=== PATIENT | female | born 1990 | race American Indian/Alaskan Native ===

== ENCOUNTER 2020-08-21 19:50 | Emergency (ER) | payer OTHER | END 2020-08-21 20:00 | disposition left against medical advice (07) | LOC: ED 19:50 | DX: Z00.8 Encounter for other general examination (principal); Z53.21 Procedure and treatment not carried out due to patient leaving prior to being seen by health care provider ==

== ENCOUNTER 2020-09-27 14:48 | Emergency (ER) | payer OTHER ==
[2020-09-27 14:55] VITALS: BP 153/93
--- NOTE | 2020-09-27 15:00 | Event Note ---
ED Screening Note ED Screening Note: CO COUGH PAIN UNDER RIBS WITH COUGH COVID NEG YESTERDAY ALSO CO WEAK- ANEMIA IN THE PAST PCOS ON MENSES SINCE DEC This initial assessment/diagnostic orders/clinical plan/treatment(s) is/are subject to change based on patients health status, clinical progression and re- assessment by fellow clinical providers in the ED. Further treatment and workup at subsequent clinical providers discretion. Patient/guardian urged not to elope from the ED as their condition may be serious if not clinically assessed and managed. Initial orders include: XR LABS
[2020-09-27 15:41] LABS: Hematocrit 36.3 % (30.3-42.9); Hemoglobin 12.2 gm/dl (10.1-14.3); Mean Corpuscular HGB Conc 34 % (30-34); Mean Corpuscular Volume 90 fl (79-97); Platelet Count 289 K/mm3 (140-440); Red Blood Count 4.06 M/mm3 (3.65-5.03); Red Cell Distribution Width 14.2 % (13.2-15.2)
--- NOTE | 2020-09-27 16:56 | Emergency Department Report ---
Minor Respiratory - HPI Chief Complaint: Upper Respiratory Infection Stated Complaint: COUGH Time Seen by Provider: 09/27/20 14:58 Duration: 3 Days Pain Location: Chest Severity: mild Minor Respiratory: Yes Able to Tolerate Fluids, Yes Cough, No Rhinorrhea, No Sore Throat, No Ear Pain, No Sick Contacts, No Hemoptysis, No Chest Pain, No Shortness of Breath, No Fever Other History: 30 YO AA FEMALE COMES TO ER WITH COUGH. SHE HAD A NEG COVID YES TERDAY BUT IS CONCERNED SHE HAS COVID PNA DUE TO HER COUGH. NON PURULENT. NO FEVER. NO CP. NO SOB. SHE HAS APPNT WITH HER PCP ARRANGED FOR 2 WEEKS FROM NOW. SHE IS ALSO CO THAT SHE HAS HAD VAG BLEEDING SINCE JUL 15- SHE HAS PCOS. SHE HAS HAD ANEMIA IN THE PAST. NO CP OR SOB. ED Review of Systems ROS: Stated complaint: COUGH Other details as noted in HPI Comment: All other systems reviewed and negative ED Past Medical Hx - Past Medical History Previous Medical History?: Yes Additional medical history: PCOS - Surgical History Past Surgical History?: Yes Additional Surgical History: ACL - Family History Family history: no significant - Social History Smoking Status: Current Every Day Smoker Substance Use Type: None Minor Respiratory Exam - Exam General: Vital signs noted. No distress. Alert and acting appropriately. HEENT: Yes Moist Mucous Membranes, No Pharyngeal Erythema, No Pharyngeal Exudates, No Rhinorrhea, No Conjuctival Injection, No Frontal Tenderness, No Max illary Tenderness Ear: Neither TM Bulge, Neither TM Erythema, Neither EAC Pain, Neither EAC Discharge Neck: Yes Supple, No Adenopathy Lungs: Yes Good Air Exchange, No Wheezes, No Ronchi, No Stridor, No Cough, No Labored Respirations, No Retractions, No Use of Accessory Muscles, No Other Abnormal Lung Sounds Heart: Yes Regular, No Murmur Abdomen: Yes Normal Bowel Sounds, No Tenderness, No Peritoneal Signs Skin: No Rash, No Edema Neurologic: Alert and oriented, no deficits. Musculoskeletal: Unremarkable. ED Course Vital Signs 09/27/20 14:53 Temperature 98.1 F Pulse Rate 74 Respiratory 20 Rate Blood Pressure 153/93 O2 Sat by Pulse 99 Oximetry ED Medical Decision Making - Lab Data Result diagrams: 09/27/20 15:07 09/27/20 15:07 - Radiology Data Radiology results: report reviewed, image reviewed - Medical Decision Making Labs 09/27/20 09/27/20 15:07 15:07 WBC 4.1 L RBC 4.06 Hgb 12.2 Hct 36.3 MCV 90 MCH 30 MCHC 34 RDW 14.2 Plt Count 289 HCG, Qual Negative Lab Results 09/27/20 09/27/20 Range/Units 15:07 15:07 WBC 4.1 L (4.5-11.0) K/mm3 RBC 4.06 (3.65-5.03) M/mm3 Hgb 12.2 (10.1-14.3) gm/dl Hct 36.3 (30.3-42.9) % MCV 90 (79-97) fl MCH 30 (28-32) pg MCHC 34 (30-34) % RDW 14.2 (13.2-15.2) % Plt Count 289 (140-440) K/mm3 HCG, Qual Negative (Negative) Vital Signs 09/27/20 14:53 Temperature 98.1 F Pulse Rate 74 Respiratory 20 Rate Blood Pressure 153/93 O2 Sat by Pulse 99 Oximetry LABS NOTED HGB NORMAL XRAY NAP PT REASSURED. ON EXAM SHE IS AMBULATORY AND NON ILL APPEARING. DC HOME WITH DC POC AND PCP FOLLOW UP. SHE VERBALIZES UNDERSTANDING OF DC PLAN OF CARE. - Differential Diagnosis RO PNA/URI; ANEMIA Critical care attestation.: If time is entered above; I have spent that time in minutes in the direct care of this critically ill patient, excluding procedure time. ED Disposition Clinical Impression: PCOS (polycystic ovarian syndrome), DUB (dysfunctional uterine bleeding), URI (upper respiratory infection) Disposition: DC-01 TO HOME OR SELFCARE Is pt being admited?: No Does the pt Need Aspirin: No Condition: Stable Additional Instructions: STAY WELL HYDRATED FOLLOW UP WITH PCP YOU HAVE PLANNED OVER THE COUNTER SIGN AND SYMPTOM RELIEF NEEDED XRAY IS NORMAL IS HBG TODAY Referrals: PRIMARY CARE, [Primary Care Provider] - 3-5 Days DILIA GUTIÉRREZ MD [Staff Physician] - 3-5 Days Time of Disposition: 16:58
--- NOTE | 2020-09-27 17:03 | XRay Report ---
CHEST PA AND LATERAL VIEWS INDICATION: COUGH. COMPARISON: None FINDINGS: Support devices: None Heart: Within normal limits Lungs/Pleura: No acute pulmonary or pleural findings. IMPRESSION: 1. No active disease. Signer Name: George Motley MD Signed: 09/27/2020 4:58 PM Workstation Name: [id number]
[2020-09-27 17:22] LABS: Blood Urea Nitrogen 9 mg/dL (7-17); Calcium 9.1 mg/dL (8.4-10.2); Hemolysis Index 4
[2020-09-27 17:23] LABS: BUN/Creatinine Ratio 13
== END 2020-09-27 17:08 | disposition home or self-care (01) ==
LOC: ED 14:48
DX: J06.9 Acute upper respiratory infection, unspecified (principal); E28.2 Polycystic ovarian syndrome; N93.8 Other specified abnormal uterine and vaginal bleeding; F17.200 Nicotine dependence, unspecified, uncomplicated; Z98.890 Other specified postprocedural states
CPT/HCPCS: 36415; 71046; 80048; 84703; 85027

== ENCOUNTER 2021-02-27 16:38 | Emergency (ER) | payer OTHER | END 2021-02-27 16:45 | disposition left against medical advice (07) | LOC: ED 16:38 | DX: R42 Dizziness and giddiness (principal); R53.1 Weakness; Z53.21 Procedure and treatment not carried out due to patient leaving prior to being seen by health care provider ==